=== PATIENT | male | born 1955 | race Caucasian/White ===

== ENCOUNTER 2021-11-23 11:44 | Emergency (ER) | payer BC, SELFPAY ==
[2021-11-23 11:46] VITALS: BP 149/97; PULSE 95; RESP 14; TEMP 36.2; O2SAT 97; BMI 26.6
--- NOTE | 2021-11-23 12:42 | ED.VIS.GI ---
HPI HPI - GI History of Present Illness Chief Complaint: Constipation Informant: patient Abdominal Pain/Flank Pain Onset: Today Context: Gradual Onset Timing: Continuous Quality: Cramping Location: RLQ and LLQ Current Severity: Gone Maximum Severity: Moderate Worsened by: Nothing Relieved by: - (having large BM) Nausea/Vomiting/Emesis GI Symptom: Negative for Nausea or Vomiting Diarrhea/Melena/Hematochezia GI Symptom: Negative for Diarrhea, Melena or Hematochezia Associated Symptoms Associated Symptoms: Negative for Dysuria, Frequency or Urgency Narrative Narrative: Has been constipated last couple days which is relatively unusual for him, drank some prune juice this morning after he started having lower abdominal pain and felt like he needed to go but was unable, in addition to some MiraLAX. Here in the ER, during my initial evaluation patient was in the restroom, when I returned, he was able to have a large bowel movement prior to my evaluation and out feels better and completely asymptomatic. No nausea or vomiting. No prior abdominal surgeries. PFSH PFSH Medical History no medical history no medical history Home Medications NK 11/23/21 [History Last Taken Unknown] Allergy/AdvReac Type Severity Reaction Status Date / Time No Known Allergies Allergy Verified 11/23/21 11:48 Social History Smoking Status: Never smoker ROS ROS ED Constitutional Constitutional ED: Denies chills or fever(s) Eyes Eyes: Denies change in vision or diplopia ENT ENT ED: Denies rhinorrhea or sore throat Cardiovascular Cardiovascular: Denies chest pain or palpitations Respiratory/Chest Respiratory/Chest: Denies cough or dyspnea Gastrointestinal Gastrointestinal: Reports constipation; Denies diarrhea, nausea or vomiting Genitourinary Genitourinary ED: Denies dysuria or hematuria Musculoskeletal Musculoskeletal: Denies back pain or neck pain Integumentary Denies abscess or rash Neurologic Neurologic: Denies headache(s), paresthesias or weakness Psychiatric Psychiatric: Denies anxiety or suicidal thoughts EXAM Physical Exam Const Vital Signs: 11/23/21 11:46 Temperature 97.1 F L Temperature Source Temporal Pulse Rate 95 Respiratory Rate 14 Blood Pressure 149/97 H Blood Pressure Mean 114 Pulse Ox 97 Oxygen Delivery Method Room Air Positive well nourished and well developed General Appearance ED: well developed and NAD HEENT Reports moist mucous membranes normocephalic and atraumatic Eyes PERRL and EOMs intact bilaterally Neck full ROM and supple Resp normal respiratory effort GI non-tender and non-distended Auscultation: normoactive bowel sounds Palpation: soft Back/Spine no CVA tenderness General Back: other FROM Extremity normal to inspection General Extremety ED: Negative for edema General Extremity: Negative for edema Neuro oriented x3, CN's II-XII intact bilaterally and no sensory deficits noted Sensorium / Orientation: awake and alert Motor Exam: strength 5/5 throughout Skin no rashes or lesions noted and no wounds MDM MDM MDM Narrative Medical decision making narrative: Patient not in need of acute treatment right now. We discussed outpatient management and he is comfortable with that plan. Discharge Plan Triage Chief Complaint: Constipation ED Provider: Angel Cooper Dx/Rx/DC Orders Clinical Impression: Constipation Instructions: ED Constipation (Adult) Prescriptions: No Action NK Referrals: Doctor,Your [NON-STAFF] - As Needed Disposition Disposition: Home, Self Care
== END 2021-11-23 13:00 | disposition home or self-care (01) ==
LOC: ED 12:59
PROVIDERS: Emergency Provider Emergency Medicine; Visit Provider Emergency Medicine
DX: K59.00 Constipation, unspecified (principal)
CPT/HCPCS: 99282